=== PATIENT | male | born 1980 | race Caucasian/White ===

== ENCOUNTER 2021-02-21 17:43 | Emergency (ER) | payer BC, OTHER ==
[2021-02-21] MEDS ORDERED: Acetaminophen/HYDROcodone 325-5 MG Tab PO ONE (17:44)
[2021-02-21 17:57] VITALS: BP 138/91; PULSE 94
--- NOTE | 2021-02-21 19:16 | EDM.PDOC ---
ED HPI GENERAL MEDICAL PROBLEM - General Chief Complaint: Lower Extremity Injury/Pain Stated Complaint: RIGHT LEG PAIN Time Seen by Provider: 02/21/21 19:15 Source of Information: Reports: Patient History Limitations: Reports: No Limitations - History of Present Illness INITIAL COMMENTS - FREE TEXT/NARRATIVE: ED with c/o pain to right hip radiating lateral thigh , greater with rotation type movement. Denies injury. Started in am, worse tonight after work, has not taken anything for pain. No prior injury , no back pain, Right Hip Pain Score (Numeric/FACES): 9 - Related Data Allergies Allergy/AdvReac Type Severity Reaction Status Date / Time No Known Allergies Allergy Verified 02/21/21 17:54 Home Meds: Home Meds Omeprazole Magnesium [Prilosec Otc] 20 mg PO DAILY 02/21/21 [History] Past Medical History - Past Health History Medical/Surgical History: Denies Medical/Surgical History HEENT History: Reports: None Cardiovascular History: Reports: None Respiratory History: Reports: None Gastrointestinal History: Reports: GERD Genitourinary History: Reports: None Musculoskeletal History: Reports: None Neurological History: Reports: None Psychiatric History: Reports: None Endocrine/Metabolic History: Reports: None Hematologic History: Reports: None Immunologic History: Reports: None Oncologic (Cancer) History: Reports: None Dermatologic History: Reports: None - Infectious Disease History Infectious Disease History: Reports: None - Past Surgical History Head Surgeries/Procedures: Reports: None Social & Family History - Family History Family Medical History: No Pertinent Family History - Tobacco Use Tobacco Use Status *Q: Never Tobacco User - Caffeine Use Caffeine Use: Reports: Coffee, Soda - Recreational Drug Use Recreational Drug Use: No - Living Situation & Occupation Living situation: Reports: Occupation: Employed Review of Systems - Review of Systems Review Of Systems: Comprehensive ROS is negative, except as noted in HPI. ED EXAM, GENERAL - Physical Exam Exam: See Below Exam Limited By: No Limitations General Appearance: Alert, Moderate Distress Eye Exam: Bilateral Eye: EOMI Ears: Normal External Exam, Hearing Grossly Normal Nose: Normal Inspection Throat/Mouth: Normal Voice Neck: Normal Inspection, Full Range of Motion Respiratory/Chest: No Respiratory Distress, Normal Breath Sounds Cardiovascular: Regular Rate, Rhythm GI/Abdominal: Soft Back Exam: Normal Inspection, Full Range of Motion. No: Paraspinal Tenderness, Vertebral Tenderness Extremities: Limited Range of Motion (right hip increased pain with rotation. mild discomfort flexion. mild tenderness with depp palpation lateral hip) Neurological: Alert, Oriented, Normal Cognition Psychiatric: Normal Affect, Normal Mood Skin Exam: Warm, Dry, Intact Course - Vital Signs Last Recorded V/S: Last Vital Signs Temp Pulse 94 02/21/21 17:55 Resp 16 02/21/21 17:55 BP 138/91 H 02/21/21 17:55 Pulse Ox 97 02/21/21 17:55 - Orders/Labs/Meds Meds: Medications Discontinued Medications Generic Name Dose Route Start Last Admin Trade Name Maribeth PRN Reason Stop Dose Admin Oxycodone/Acetaminophen 1 tab 02/21/21 19:19 02/21/21 19:41 Acetaminophen/Oxycodone 325-5 Mg Tab PO 02/21/21 19:20 1 tab ONETIME ONE Administration Oxycodone/Acetaminophen Confirm 02/21/21 20:27 Acetaminophen/Oxycodone 325-5 Mg Tab Administered 02/21/21 20:28 Dose 2 tab .ROUTE .STK-MED ONE Departure - Departure Time of Disposition: 20:18 Disposition: Home, Self-Care 01 Condition: Good Clinical Impression: Acute right hip pain - Discharge Information *PRESCRIPTION DRUG MONITORING PROGRAM REVIEWED*: No *COPY OF PRESCRIPTION DRUG MONITORING REPORT IN PATIENT AL: No Instructions: Hip Pain Forms: ED Department Discharge Additional Instructions: ice to hip area percocet 5/325 one every 6 hours as needed for severe pain ibuprofen 600mg one every 6 hours as needed for moderate pain clinic follow up later week if not improving weight bearing as tolerated. Sepsis Event Note (ED) - Evaluation Sepsis Screening Result: No Definite Risk - Focused Exam Vital Signs: Vital Signs Pulse Resp BP Pulse Ox 02/21/21 17:55 94 16 138/91 H 97
[2021-02-21] MEDS ORDERED: Acetaminophen/oxyCODONE 325-5 MG Tab PO ONE (19:19)
--- NOTE | 2021-02-21 20:03 | CR ---
PROCEDURE INFORMATION: Exam: XR Bilateral Hips Exam date and time: 02/21/2021 7:18 PM Age: 41 years old Clinical indication: Hip pain; Right hip TECHNIQUE: Imaging protocol: XR bilateral hips. Views: 2 views of hips with pelvis when performed. COMPARISON: No relevant prior studies available. FINDINGS: Bones/joints: Unremarkable. No acute fracture. Soft tissues: Unremarkable. IMPRESSION: No acute findings.
[2021-02-21] MEDS ORDERED: Acetaminophen/oxyCODONE 325-5 MG Tab ONE (20:27)
== END 2021-02-21 20:33 | disposition home or self-care (01) ==
LOC: DL.ED 17:43
DX: M25.551 Pain in right hip (principal); K21.9 Gastro-esophageal reflux disease without esophagitis; Z79.899 Other long term (current) drug therapy
CPT/HCPCS: 99283; A9270-GY